=== PATIENT | female | born 1955 | race Caucasian/White ===

== ENCOUNTER 2021-10-05 07:27 | Inpatient (IN) | payer OTHER, MEDICARE ==
[2021-10-05 08:20] LABS: Bilirubin Neg (Negative); Blood, Urine 25 (Negative); Clarity Clear (Clear); Glucose, Urine (Dipstick) Normal (Negative); Ketone, Urine Negative (Negative); Leukocyte 100 (Negative); Nitrite Positive (Negative); Protein, Urine (Dipstick) 30 mg/dl (Neg-Trace); Urobilinogen Normal mg/dL (Less than 2)
[2021-10-05 09:08] LABS: Squamous Epithelial 0-3 HPF (0-3)
[2021-10-05 09:09] LABS: Bacteria/HPF 2+ HPF (None Seen)
[2021-10-05] MEDS ORDERED: Cefepime 2 GM VIAL ONE (09:11)
[2021-10-05 09:22] LABS: #Monocytes 1.4 10x3/uL (0.0-1.1); #Neutrophils 10.7 10x3/uL (1.5-8.4); %Basophils 0.3 % (0.0-2.0); %Eosinophils 0.3 % (0.0-6.0); %Lymphocytes 14.2 % (18.0-47.0); %Monocytes 9.4 % (0.0-10.0); Hemoglobin 8.5 g/dL (12.0-15.5); Mean Corpuscular HGB CONC 31.3 g/dL (32.0-36.0); Mean Corpuscular Volume 96.1 fl (81.6-98.3); Mean Platelet Volume 10.5 fl (7.4-10.4); Platelet Count 272 10x3/uL (150-450); RBC Distribution Width 14.6 % (11.5-14.5); Red Blood Cell (RBC) Count 2.83 10x6/uL (3.90-5.03); White Blood Cell (WBC) Count 14.3 10x3/uL (3.5-10.5)
[2021-10-05 09:27] LABS: Acetaminophen Less than 10.0 mcg/mL (10.0-30.0); Alcohol Less than 10 mg/dL (Less than 10); CK (CPK) 1175 U/L (29-168); Salicylate Less than 8.0 mg/dL (15.0-30.0)
[2021-10-05 09:28] LABS: ALT (SGPT) 24 U/L (8-55); AST (SGOT) 35 U/L (5-34); Albumin 4.1 g/dL (3.4-4.8); Alkaline Phosphatase 48 U/L (40-110); Anion Gap 18 mmol/L (10-20); BUN (Urea Nitrogen) 18 mg/dL (9.8-20.1); Bilirubin, Total 0.4 mg/dL (0.2-1.2); Calc. Creatinine Clearance 0 mL/min (70-130); Calcium 9.6 mg/dL (7.8-10.44); Carbon Dioxide 17 mmol/L (23-31); Chloride 107 mmol/L (98-107); Globulin 3.5 g/dL (2.4-3.5); Glucose 103 mg/dL (80-115); Lipase 17 U/L (8-78); Potassium 4.6 mmol/L (3.5-5.1); Protein, Total 7.6 g/dL (5.8-8.1); Sodium 137 mmol/L (136-145)
[2021-10-05 09:40] LABS: Amphetamine Not Detected (NotDetected); Barbiturates Screen Detected (NotDetected); Benzodiazepine Screen Not Detected (NotDetected); Cocaine Metabolite Screen Not Detected (NotDetected); Methadone Not Detected (NotDetected); Methamphetamine Not Detected (NotDetected); Opiate Screen Not Detected (NotDetected); Oxycodone Screen Not Detected (NotDetected); Phencyclidine (PCP) Not Detected (NotDetected); THC/Cannabinoid Screen Not Detected (NotDetected); Tricyclic Screen Detected (NotDetected)
[2021-10-05] MEDS ORDERED: Ondansetron ODT 4 MG TAB PO PRN (09:40)
[2021-10-05] MEDS ORDERED: Bisacodyl 5 MG TAB PO PRN (09:40)
[2021-10-05] MEDS ORDERED: Ondansetron PF 4 MG/2 ML Vial IVP PRN (09:40)
[2021-10-05] MEDS ORDERED: Senokot S 8.6-50 MG TAB PO PRN (09:40)
[2021-10-05 11:49] LABS: Iron 18 ug/dL (50-170); Iron Binding Capacity, Total 391 mcg/dL (265-497)
[2021-10-05] MEDS ORDERED: VANCOMYCIN 1.75 GM/350 ML BAG 1.75 GM in Premix Bag 1 BAG IVPB SCH (12:00)
[2021-10-05 12:09] LABS: Ferritin 118.25 ng/mL (10-291)
[2021-10-05 14:45] VITALS: BMI 36.6
[2021-10-05] MEDS: Sodium Chloride 0.9% 1,000 ML IV SCH ×2 (15:03→23:00)
[2021-10-05] MEDS: Acetaminophen 325 MG TAB PO PRN ×2 (16:48→21:16)
[2021-10-05] MEDS: Ferrous Sulfate 325 MG TAB PO SCH (16:48)
[2021-10-05] MEDS: cefTRIAXone\\ROCEPHIN 1 GM in Sodium Chloride 0.9% 100 ML IVPB SCH (16:48)
[2021-10-05] MEDS ORDERED: Gabapentin 300 MG CAP PO SCH (17:15)
[2021-10-05] MEDS ORDERED: Cefepime 2 GM in Sodium Chloride 0.9% 100 ML IVPB SCH (21:00)
[2021-10-05] MEDS: Bupropion 150 MG XL TAB PO SCH (21:00)
[2021-10-05] MEDS: DULoxetine 30 MG CAP PO SCH (21:00)
[2021-10-05] MEDS ORDERED: Meclizine HCl 25 MG TAB PO SCH (21:00)
[2021-10-05] MEDS ORDERED: Vancomycin 1 GM in Premix Bag 1 BAG IVPB SCH (21:00)
[2021-10-05] MEDS: Potassium Chloride 20 MEQ TAB PO SCH (21:01)
[2021-10-05] MEDS: Atorvastatin Calcium 20 MG TAB PO SCH (21:01)
[2021-10-06] MEDS: Acetaminophen 325 MG TAB PO PRN (01:44)
[2021-10-06 04:43] LABS: ALT (SGPT) 30 U/L (8-55); AST (SGOT) 44 U/L (5-34); Albumin 3.6 g/dL (3.4-4.8); Alkaline Phosphatase 49 U/L (40-110); Anion Gap 15 mmol/L (10-20); BUN (Urea Nitrogen) 14 mg/dL (9.8-20.1); Bilirubin, Total 0.2 mg/dL (0.2-1.2); Calc. Creatinine Clearance 85 mL/min (70-130); Calcium 8.6 mg/dL (7.8-10.44); Carbon Dioxide 17 mmol/L (23-31); Chloride 114 mmol/L (98-107); Globulin 3.5 g/dL (2.4-3.5); Glucose 122 mg/dL (80-115); Potassium 4.3 mmol/L (3.5-5.1); Protein, Total 7.1 g/dL (5.8-8.1); Sodium 142 mmol/L (136-145)
[2021-10-06 04:49] LABS: #Eosinphils 0.3 10x3/uL (0.0-0.5); #Neutrophils 5.6 10x3/uL (1.5-8.4); %Basophils 0.4 % (0.0-2.0); %Eosinophils 3.7 % (0.0-6.0); %Lymphocytes 17.4 % (18.0-47.0); %Monocytes 11.9 % (0.0-10.0); %Neutrophils 65.8 % (40.0-75.0); Hemoglobin 8.5 g/dL (12.0-15.5); Mean Corpuscular HGB CONC 31.1 g/dL (32.0-36.0); Mean Corpuscular Hemoglobin 30.5 pg (27.0-33.0); Mean Corpuscular Volume 97.8 fl (81.6-98.3); Mean Platelet Volume 10.7 fl (7.4-10.4); Platelet Count 264 10x3/uL (150-450); RBC Distribution Width 14.7 % (11.5-14.5); Red Blood Cell (RBC) Count 2.79 10x6/uL (3.90-5.03); White Blood Cell (WBC) Count 8.6 10x3/uL (3.5-10.5)
[2021-10-06 06:36] LABS: SARS-CoV-2 NAA Rapid Test Not Detected (NotDetected)
[2021-10-06] MEDS: Sodium Chloride 0.9% 1,000 ML IV SCH ×2 (08:54→16:48)
[2021-10-06] MEDS: Atenolol 25 MG TAB PO SCH (08:56)
[2021-10-06] MEDS: DULoxetine 30 MG CAP PO SCH ×2 (08:56→21:12)
[2021-10-06] MEDS: Losartan Potassium 50 MG TAB PO SCH (08:56)
[2021-10-06] MEDS: Amlodipine 10 MG TAB PO SCH (08:57)
[2021-10-06] MEDS: Ferrous Sulfate 325 MG TAB PO SCH ×2 (08:57→16:48)
[2021-10-06] MEDS: Bupropion 150 MG XL TAB PO SCH ×2 (08:57→21:11)
[2021-10-06] MEDS: Potassium Chloride 20 MEQ TAB PO SCH ×2 (08:57→21:12)
[2021-10-06] MEDS: Escitalopram Oxalate 20 mg Tablet PO SCH (08:57)
[2021-10-06] MEDS: Fenofibrate Nanocrystallized 145 MG TAB PO SCH (08:58)
[2021-10-06] MEDS ORDERED: Non-Formulary Medication 1 EACH (Famotidine [Famotidine] 40 MG Tablet) PO SCH (09:00)
[2021-10-06] MEDS ORDERED: Famotidine 20 MG TAB PO SCH (09:00)
[2021-10-06] MEDS: HYDROcodone/Acetaminophen 5/325 mg Tablet PO PRN ×2 (11:17→21:13)
[2021-10-06] MEDS ORDERED: Vancomycin 1.5 GRAM/300 ML BAG 1.5 GM in Premix Bag 1 BAG IVPB SCH (12:00)
[2021-10-06] MEDS: cefTRIAXone\\ROCEPHIN 1 GM in Sodium Chloride 0.9% 100 ML IVPB SCH (16:48)
[2021-10-06] MEDS: Atorvastatin Calcium 20 MG TAB PO SCH (21:11)
[2021-10-06] MEDS: Famotidine 20 MG TAB PO SCH (21:12)
[2021-10-07] MEDS: HYDROcodone/Acetaminophen 5/325 mg Tablet PO PRN ×3 (01:23→16:34)
[2021-10-07] MEDS: Sodium Chloride 0.9% 1,000 ML IV SCH ×2 (05:09→16:42)
[2021-10-07 05:18] LABS: #Eosinphils 0.4 10x3/uL (0.0-0.5); #Neutrophils 6.5 10x3/uL (1.5-8.4); %Basophils 0.4 % (0.0-2.0); %Eosinophils 4.5 % (0.0-6.0); %Lymphocytes 17.7 % (18.0-47.0); %Monocytes 10.3 % (0.0-10.0); %Neutrophils 66.5 % (40.0-75.0); Hemoglobin 8.8 g/dL (12.0-15.5); Mean Corpuscular HGB CONC 31.4 g/dL (32.0-36.0); Mean Corpuscular Hemoglobin 30.2 pg (27.0-33.0); Mean Corpuscular Volume 96.2 fl (81.6-98.3); Mean Platelet Volume 10.4 fl (7.4-10.4); Platelet Count 308 10x3/uL (150-450); RBC Distribution Width 14.5 % (11.5-14.5); Red Blood Cell (RBC) Count 2.91 10x6/uL (3.90-5.03); White Blood Cell (WBC) Count 9.8 10x3/uL (3.5-10.5)
[2021-10-07 05:38] LABS: Anion Gap 15 mmol/L (10-20); BUN (Urea Nitrogen) 11 mg/dL (9.8-20.1); Calc. Creatinine Clearance 100 mL/min (70-130); Calcium 8.6 mg/dL (7.8-10.44); Carbon Dioxide 20 mmol/L (23-31); Chloride 107 mmol/L (98-107); Glucose 102 mg/dL (80-115); Sodium 138 mmol/L (136-145)
[2021-10-07] MEDS: Amlodipine 10 MG TAB PO SCH (08:31)
[2021-10-07] MEDS: Losartan Potassium 50 MG TAB PO SCH (08:32)
[2021-10-07] MEDS: Potassium Chloride 20 MEQ TAB PO SCH ×2 (08:32→21:05)
[2021-10-07] MEDS: Ferrous Sulfate 325 MG TAB PO SCH ×2 (08:32→16:45)
[2021-10-07] MEDS: DULoxetine 30 MG CAP PO SCH ×2 (08:32→21:05)
[2021-10-07] MEDS: Escitalopram Oxalate 20 mg Tablet PO SCH (08:32)
[2021-10-07] MEDS: Bupropion 150 MG XL TAB PO SCH ×2 (08:33→21:04)
[2021-10-07] MEDS: Atenolol 25 MG TAB PO SCH (08:33)
[2021-10-07] MEDS: Famotidine 20 MG TAB PO SCH ×2 (08:34→21:04)
[2021-10-07] MEDS: Fenofibrate Nanocrystallized 145 MG TAB PO SCH (08:35)
[2021-10-07 11:14] LABS: Vancomycin, Trough 6.8 ug/mL
[2021-10-07] MEDS: Vancomycin HCl 1 GM in Sodium Chloride 0.9% 250 ML 250 ML IVPB SCH (12:14)
[2021-10-07] MEDS: cefTRIAXone\\ROCEPHIN 1 GM in Sodium Chloride 0.9% 100 ML IVPB SCH (16:35)
[2021-10-07] MEDS: Atorvastatin Calcium 20 MG TAB PO SCH (21:04)
[2021-10-08] MEDS: Vancomycin HCl 1 GM in Sodium Chloride 0.9% 250 ML 250 ML IVPB SCH ×2 (00:27→11:40)
[2021-10-08] MEDS: Sodium Chloride 0.9% 1,000 ML IV SCH ×3 (00:31→21:20)
[2021-10-08] MEDS: Ferrous Sulfate 325 MG TAB PO SCH ×2 (08:20→16:23)
[2021-10-08] MEDS: Famotidine 20 MG TAB PO SCH ×2 (08:21→21:21)
[2021-10-08] MEDS: HYDROcodone/Acetaminophen 5/325 mg Tablet PO PRN ×2 (08:21→16:23)
[2021-10-08] MEDS: Bupropion 150 MG XL TAB PO SCH ×2 (08:22→21:21)
[2021-10-08] MEDS: Potassium Chloride 20 MEQ TAB PO SCH ×2 (08:22→21:21)
[2021-10-08] MEDS: Atenolol 25 MG TAB PO SCH (08:22)
[2021-10-08] MEDS: Losartan Potassium 50 MG TAB PO SCH (08:23)
[2021-10-08] MEDS: Amlodipine 10 MG TAB PO SCH (08:23)
[2021-10-08] MEDS: Escitalopram Oxalate 20 mg Tablet PO SCH (08:24)
[2021-10-08] MEDS: DULoxetine 30 MG CAP PO SCH ×2 (08:24→21:21)
[2021-10-08] MEDS: Fenofibrate Nanocrystallized 145 MG TAB PO SCH (09:40)
[2021-10-08] MEDS: cefTRIAXone\\ROCEPHIN 1 GM in Sodium Chloride 0.9% 100 ML IVPB SCH (16:23)
[2021-10-08] MEDS: Atorvastatin Calcium 20 MG TAB PO SCH (21:21)
[2021-10-08 23:00] LABS: Vancomycin, Trough 13.5 ug/mL
[2021-10-09] MEDS ORDERED: hydrALAZINE 20 MG/ML VIAL SLOW IVP PRN (00:08)
[2021-10-09] MEDS: Vancomycin HCl 1 GM in Sodium Chloride 0.9% 250 ML 250 ML IVPB SCH ×3 (04:04→22:51)
[2021-10-09] MEDS: Sodium Chloride 0.9% 1,000 ML IV SCH (06:31)
[2021-10-09] MEDS: Atenolol 25 MG TAB PO SCH (09:00)
[2021-10-09] MEDS: Fenofibrate Nanocrystallized 145 MG TAB PO SCH (09:01)
[2021-10-09] MEDS: Amlodipine 10 MG TAB PO SCH (09:01)
[2021-10-09] MEDS: Escitalopram Oxalate 20 mg Tablet PO SCH (09:01)
[2021-10-09] MEDS: Bupropion 150 MG XL TAB PO SCH ×2 (09:01→21:02)
[2021-10-09] MEDS: DULoxetine 30 MG CAP PO SCH ×2 (09:01→21:04)
[2021-10-09] MEDS: Potassium Chloride 20 MEQ TAB PO SCH ×2 (09:01→21:03)
[2021-10-09] MEDS: Losartan Potassium 50 MG TAB PO SCH (09:01)
[2021-10-09] MEDS: Famotidine 20 MG TAB PO SCH ×2 (09:01→21:03)
[2021-10-09] MEDS: Ferrous Sulfate 325 MG TAB PO SCH ×2 (09:01→17:38)
[2021-10-09] MEDS ORDERED: Metoprolol Tartrate 5 MG/5 ML VIAL IVP PRN (13:30)
[2021-10-09] MEDS ORDERED: Cyclobenzaprine 10 MG TAB PO PRN (15:25)
[2021-10-09] MEDS ORDERED: Lidocaine 1% PF 5 ML VIAL ONE (15:57)
[2021-10-09] MEDS ORDERED: PROPOFOL 20 ML ONE (15:57)
[2021-10-09] MEDS ORDERED: Ondansetron PF 4 MG/2 ML Vial ONE (15:57)
[2021-10-09] MEDS ORDERED: Dexamethasone 4 mg/ml Vial ONE (15:57)
[2021-10-09] MEDS ORDERED: Fentanyl 100 MCG/2 ML VIAL ONE ×2 (15:57→16:56)
[2021-10-09] MEDS: cefTRIAXone\\ROCEPHIN 1 GM in Sodium Chloride 0.9% 100 ML IVPB SCH (17:38)
[2021-10-09] MEDS: HYDROcodone/Acetaminophen 5/325 mg Tablet PO PRN (20:58)
[2021-10-09] MEDS: Primidone 50 MG TAB PO SCH (21:02)
[2021-10-09] MEDS: Atorvastatin Calcium 20 MG TAB PO SCH (21:04)
[2021-10-10] MEDS: HYDROcodone/Acetaminophen 5/325 mg Tablet PO PRN ×3 (02:32→16:38)
[2021-10-10 05:07] LABS: #Basophils 0.1 10x3/uL (0.0-0.2); #Eosinphils 0.1 10x3/uL (0.0-0.5); #Monocytes 1.3 10x3/uL (0.0-1.1); %Basophils 0.4 % (0.0-2.0); %Eosinophils 0.6 % (0.0-6.0); %Lymphocytes 13.3 % (18.0-47.0); %Monocytes 9.9 % (0.0-10.0); %Neutrophils 74.5 % (40.0-75.0); Anion Gap 18 mmol/L (10-20); BUN (Urea Nitrogen) 20 mg/dL (9.8-20.1); Calc. Creatinine Clearance 74 mL/min (70-130); Calcium 9.6 mg/dL (7.8-10.44); Carbon Dioxide 23 mmol/L (23-31); Chloride 106 mmol/L (98-107); Glucose 102 mg/dL (80-115); Hemoglobin 9.3 g/dL (12.0-15.5); Mean Corpuscular Hemoglobin 29.8 pg (27.0-33.0); Mean Corpuscular Volume 93.3 fl (81.6-98.3); Mean Platelet Volume 9.9 fl (7.4-10.4); Platelet Count 483 10x3/uL (150-450); Potassium 4.4 mmol/L (3.5-5.1); RBC Distribution Width 14.5 % (11.5-14.5); Red Blood Cell (RBC) Count 3.12 10x6/uL (3.90-5.03); Sodium 143 mmol/L (136-145); White Blood Cell (WBC) Count 13.4 10x3/uL (3.5-10.5)
[2021-10-10] MEDS: Escitalopram Oxalate 20 mg Tablet PO SCH (08:49)
[2021-10-10] MEDS: Primidone 50 MG TAB PO SCH ×2 (08:49→20:10)
[2021-10-10] MEDS: DULoxetine 30 MG CAP PO SCH ×2 (08:49→20:09)
[2021-10-10] MEDS: Ferrous Sulfate 325 MG TAB PO SCH ×2 (08:49→16:41)
[2021-10-10] MEDS: Fenofibrate Nanocrystallized 145 MG TAB PO SCH (08:49)
[2021-10-10] MEDS: Methocarbamol 500 MG TAB PO SCH (08:49)
[2021-10-10] MEDS: Famotidine 20 MG TAB PO SCH ×2 (08:49→20:10)
[2021-10-10] MEDS: Atenolol 25 MG TAB PO SCH ×2 (08:49→20:09)
[2021-10-10] MEDS: Potassium Chloride 20 MEQ TAB PO SCH ×2 (08:50→20:10)
[2021-10-10] MEDS: Bupropion 150 MG XL TAB PO SCH ×2 (08:50→20:10)
[2021-10-10] MEDS: Amlodipine 10 MG TAB PO SCH (08:50)
[2021-10-10] MEDS: Losartan Potassium 50 MG TAB PO SCH (08:50)
[2021-10-10] MEDS: hydrALAZINE 20 MG/ML VIAL SLOW IVP PRN (09:16)
[2021-10-10 10:55] LABS: Vancomycin, Trough 19.2 ug/mL
[2021-10-10] MEDS: Vancomycin HCl 1 GM in Sodium Chloride 0.9% 250 ML 250 ML IVPB SCH (12:16)
[2021-10-10] MEDS: Acetaminophen 325 MG TAB PO PRN (14:51)
[2021-10-10] MEDS: Atorvastatin Calcium 20 MG TAB PO SCH (20:10)
[2021-10-11] MEDS: Vancomycin HCl 750 MG in Sodium Chloride 0.9% 250 ML 250 ML IVPB SCH ×2 (00:58→11:55)
[2021-10-11] MEDS: hydrALAZINE 20 MG/ML VIAL SLOW IVP PRN (00:59)
[2021-10-11] MEDS: HYDROcodone/Acetaminophen 5/325 mg Tablet PO PRN ×3 (01:44→14:41)
[2021-10-11] MEDS: Famotidine 20 MG TAB PO SCH (10:40)
[2021-10-11] MEDS: Losartan Potassium 50 MG TAB PO SCH (10:40)
[2021-10-11] MEDS: Primidone 50 MG TAB PO SCH (10:41)
[2021-10-11] MEDS: Bupropion 150 MG XL TAB PO SCH (10:42)
[2021-10-11] MEDS: Ferrous Sulfate 325 MG TAB PO SCH ×2 (10:42→18:09)
[2021-10-11] MEDS: DULoxetine 30 MG CAP PO SCH (10:43)
[2021-10-11] MEDS: Potassium Chloride 20 MEQ TAB PO SCH (10:43)
[2021-10-11] MEDS: Escitalopram Oxalate 20 mg Tablet PO SCH (10:43)
[2021-10-11] MEDS: Methocarbamol 500 MG TAB PO SCH (10:43)
[2021-10-11] MEDS: Fenofibrate Nanocrystallized 145 MG TAB PO SCH (10:44)
[2021-10-11] MEDS: Atenolol 25 MG TAB PO SCH (10:45)
[2021-10-11] MEDS: Amlodipine 10 MG TAB PO SCH (10:45)
[2021-10-11] MEDS: Acetaminophen 325 MG TAB PO PRN (18:08)
[2021-10-11 22:22] VITALS: BP 119/84; TEMP 97.2
== END 2021-10-11 20:10 | disposition home or self-care (01) | DRG 579 ==
LOC: CSHERS 07:27 → CSHERHOLD 10:16 → CSHTELE 14:06
PROVIDERS: ADMIT Hospitalist; ATTEND Internal Medicine
PROC: 0JBJ0ZZ Excision of Right Hand Subcutaneous Tissue and Fascia, Open Approach (ICD-10-PCS; principal; 2021-10-09)
DX: L03.113 Cellulitis of right upper limb (principal); G93.41 Metabolic encephalopathy; N30.00 Acute cystitis without hematuria; N17.9 Acute kidney failure, unspecified; M62.82 Rhabdomyolysis; E78.5 Hyperlipidemia, unspecified; F32.A Depression, unspecified; G89.29 Other chronic pain; Z20.822 Contact with and (suspected) exposure to COVID-19; D72.829 Elevated white blood cell count, unspecified; I16.0 Hypertensive urgency; D64.9 Anemia, unspecified; W19.XXXA Unspecified fall, initial encounter; Y92.59 Other trade areas as the place of occurrence of the external cause; Z98.890 Other specified postprocedural states; Z87.891 Personal history of nicotine dependence
CPT/HCPCS: 36415; 70450; 71045; 80048; 80053; 80202; 80306; 80307; 81003; 81015; 82550; 82607; 82728; 82746; 83540; 83550; 83605; 83690; 84145; 84484; 85025; 85652; 86141; 87040; 87070; 87077; 87086; 87186; 87205; 93005; 94760; 96361; 96365; 96366; 96367; J0360; J0692; J0696; J1100; J1956; J2405; J2704; J3010; J3370; J3490; J7050; U0002

== ENCOUNTER 2021-11-16 18:02 | Inpatient (IN) | payer MEDICARE, OTHER ==
[2021-11-16 19:05] LABS: #Eosinphils 0.2 10x3/uL (0.0-0.5); #Monocytes 0.9 10x3/uL (0.0-1.1); #Neutrophils 5.7 10x3/uL (1.5-8.4); %Basophils 0.5 % (0.0-2.0); %Eosinophils 2.7 % (0.0-6.0); %Lymphocytes 20.4 % (18.0-47.0); %Monocytes 9.9 % (0.0-10.0); %Neutrophils 66.3 % (40.0-75.0); Hemoglobin 10.2 g/dL (12.0-15.5); Mean Corpuscular HGB CONC 32.3 g/dL (32.0-36.0); Mean Corpuscular Hemoglobin 30.4 pg (27.0-33.0); Mean Platelet Volume 9.5 fl (7.4-10.4); Platelet Count 337 10x3/uL (150-450); RBC Distribution Width 14.6 % (11.5-14.5); Red Blood Cell (RBC) Count 3.36 10x6/uL (3.90-5.03); White Blood Cell (WBC) Count 8.6 10x3/uL (3.5-10.5)
[2021-11-16 19:20] LABS: ALT (SGPT) 28 U/L (8-55); AST (SGOT) 31 U/L (5-34); Acetaminophen Less than 10.0 mcg/mL (10.0-30.0); Albumin 4.1 g/dL (3.4-4.8); Alcohol Less than 10 mg/dL (Less than 10); Alkaline Phosphatase 55 U/L (40-110); Anion Gap 16 mmol/L (10-20); BUN (Urea Nitrogen) 17 mg/dL (9.8-20.1); Bilirubin, Total 0.4 mg/dL (0.2-1.2); CK (CPK) 177 U/L (29-168); Calc. Creatinine Clearance 0 mL/min (70-130); Calcium 9.4 mg/dL (7.8-10.44); Carbon Dioxide 23 mmol/L (23-31); Chloride 108 mmol/L (98-107); Estimated GFR 30; Globulin 3.1 g/dL (2.4-3.5); Glucose 80 mg/dL (80-115); Potassium 4.2 mmol/L (3.5-5.1); Protein, Total 7.2 g/dL (5.8-8.1); Salicylate Less than 8.0 mg/dL (15.0-30.0); Sodium 143 mmol/L (136-145)
[2021-11-16 19:22] LABS: INR-International Normal Ratio 1.2; PTT 24.9 sec (22.0-33.0); Prothrombin Time 12.6 sec (9.5-12.1)
[2021-11-16] MEDS ORDERED: Ondansetron PF 4 MG/2 ML Vial IVP PRN (22:17)
[2021-11-16] MEDS ORDERED: Senokot S 8.6-50 MG TAB PO PRN (22:17)
[2021-11-16] MEDS ORDERED: Zolpidem Tartrate 5 MG TAB PO PRN (22:17)
[2021-11-16] MEDS ORDERED: Guaifenesin DM 100-10/5 ML UDCUP PO PRN (22:17)
[2021-11-16] MEDS ORDERED: Calcium Carbonate 500 MG ChewTAB PO PRN (22:17)
[2021-11-17 00:08] LABS: SARS-CoV-2 NAA Rapid Test Not Detected (NotDetected)
[2021-11-17 01:49] VITALS: BMI 29.5
[2021-11-17 01:55] LABS: Bilirubin 1+ (Negative); Blood, Urine Negative (Negative); Clarity Slightly Cloudy (Clear); Glucose, Urine (Dipstick) Normal (Negative); Ketone, Urine 5 mg/dL (Negative); Leukocyte 25 (Negative); Nitrite Negative (Negative); Protein, Urine (Dipstick) 15 mg/dl (Neg-Trace); Urobilinogen Normal mg/dL (Less than 2)
[2021-11-17] MEDS ORDERED: Amlodipine 5 MG TAB PO SCH (02:00)
[2021-11-17] MEDS: Lactated Ringer's 1,000 ML IV SCH ×3 (02:01→21:26)
[2021-11-17 02:03] LABS: Bacteria/HPF None Seen HPF (None Seen); Mucous/LPF 2+ LPF (<2+); RBC/HPF None Seen HPF (0-3); Squamous Epithelial 0-3 HPF (0-3); WBC/HPF 0-3 HPF (0-3)
[2021-11-17 02:04] LABS: Amphetamine Not Detected (NotDetected); Barbiturates Screen Detected (NotDetected); Benzodiazepine Screen Detected (NotDetected); Cocaine Metabolite Screen Not Detected (NotDetected); Methadone Not Detected (NotDetected); Methamphetamine Not Detected (NotDetected); Opiate Screen Not Detected (NotDetected); Oxycodone Screen Not Detected (NotDetected); Phencyclidine (PCP) Not Detected (NotDetected); THC/Cannabinoid Screen Not Detected (NotDetected); Tricyclic Screen Detected (NotDetected)
[2021-11-17 04:57] LABS: #Eosinphils 0.2 10x3/uL (0.0-0.5); #Monocytes 0.6 10x3/uL (0.0-1.1); #Neutrophils 3.3 10x3/uL (1.5-8.4); %Basophils 0.5 % (0.0-2.0); %Eosinophils 3.5 % (0.0-6.0); %Lymphocytes 33.7 % (18.0-47.0); %Monocytes 9.8 % (0.0-10.0); %Neutrophils 52.2 % (40.0-75.0); Hemoglobin 9.3 g/dL (12.0-15.5); Mean Corpuscular HGB CONC 32.4 g/dL (32.0-36.0); Mean Corpuscular Hemoglobin 30.5 pg (27.0-33.0); Mean Corpuscular Volume 94.1 fl (81.6-98.3); Platelet Count 267 10x3/uL (150-450); RBC Distribution Width 14.8 % (11.5-14.5); Red Blood Cell (RBC) Count 3.05 10x6/uL (3.90-5.03); White Blood Cell (WBC) Count 6.4 10x3/uL (3.5-10.5)
[2021-11-17 05:18] LABS: Anion Gap 16 mmol/L (10-20); BUN (Urea Nitrogen) 17 mg/dL (9.8-20.1); CK (CPK) 196 U/L (29-168); Calc. Creatinine Clearance 44 mL/min (70-130); Calcium 8.7 mg/dL (7.8-10.44); Carbon Dioxide 21 mmol/L (23-31); Chloride 110 mmol/L (98-107); Estimated GFR 42; Glucose 87 mg/dL (80-115); Magnesium 1.5 mg/dL (1.6-2.6); Potassium 3.4 mmol/L (3.5-5.1); Sodium 144 mmol/L (136-145)
[2021-11-17] MEDS ORDERED: Potassium Chloride 20 MEQ TAB PO SCH (06:15)
[2021-11-17] MEDS ORDERED: Magnesium 2 GM/50 ML(in water) 2 GM in Premix Bag 1 BAG IVPB SCH (06:15)
[2021-11-17] MEDS ORDERED: Atenolol 25 MG TAB PO SCH (09:00)
[2021-11-17] MEDS: Atenolol 25 MG TAB PO SCH (09:39)
[2021-11-17] MEDS: Famotidine 20 MG TAB PO SCH (09:39)
[2021-11-17] MEDS: Aspirin 81 mg Enteric Coated Tablet PO SCH (09:39)
[2021-11-17] MEDS: Amlodipine 10 MG TAB PO SCH (09:40)
[2021-11-17] MEDS: Ferrous Sulfate 325 MG TAB PO SCH ×2 (09:40→17:44)
[2021-11-17] MEDS: Enoxaparin Sodium 40 MG/0.4 ML SYRINGE SC SCH (09:40)
[2021-11-17] MEDS: Stress 600 With Zinc 1 TAB PO SCH (09:44)
[2021-11-17 13:32] LABS: Anion Gap 12 mmol/L (10-20); BUN (Urea Nitrogen) 13 mg/dL (9.8-20.1); Calc. Creatinine Clearance 58 mL/min (70-130); Calcium 8.6 mg/dL (7.8-10.44); Carbon Dioxide 25 mmol/L (23-31); Chloride 108 mmol/L (98-107); Estimated GFR 58; Glucose 132 mg/dL (80-115); Magnesium 1.8 mg/dL (1.6-2.6); Potassium 3.7 mmol/L (3.5-5.1); Sodium 141 mmol/L (136-145)
[2021-11-17] MEDS: Atorvastatin Calcium 20 MG TAB PO SCH (21:25)
[2021-11-18] MEDS: Ferrous Sulfate 325 MG TAB PO SCH ×2 (09:00→18:06)
[2021-11-18] MEDS: Atenolol 25 MG TAB PO SCH (09:01)
[2021-11-18] MEDS: Aspirin 81 mg Enteric Coated Tablet PO SCH (09:01)
[2021-11-18] MEDS: Famotidine 20 MG TAB PO SCH (09:02)
[2021-11-18] MEDS: Amlodipine 10 MG TAB PO SCH (09:02)
[2021-11-18] MEDS: Enoxaparin Sodium 40 MG/0.4 ML SYRINGE SC SCH (09:02)
[2021-11-18] MEDS: Stress 600 With Zinc 1 TAB PO SCH (18:09)
[2021-11-18] MEDS: hydrALAZINE 25 MG TAB PO SCH ×2 (18:09→20:15)
[2021-11-18] MEDS: Lactated Ringer's 1,000 ML IV SCH (18:10)
[2021-11-18] MEDS: Atorvastatin Calcium 20 MG TAB PO SCH (20:15)
[2021-11-19] MEDS: Acetaminophen 325 MG TAB PO PRN ×2 (04:28→20:50)
[2021-11-19] MEDS: Lactated Ringer's 1,000 ML IV SCH ×2 (04:31→18:40)
[2021-11-19] MEDS: Atenolol 25 MG TAB PO SCH (09:37)
[2021-11-19] MEDS: Enoxaparin Sodium 40 MG/0.4 ML SYRINGE SC SCH ×2 (09:37→09:42)
[2021-11-19] MEDS: Famotidine 20 MG TAB PO SCH (09:38)
[2021-11-19] MEDS: hydrALAZINE 25 MG TAB PO SCH ×3 (09:38→20:51)
[2021-11-19] MEDS: Ferrous Sulfate 325 MG TAB PO SCH ×2 (09:38→18:44)
[2021-11-19] MEDS: Amlodipine 10 MG TAB PO SCH (09:38)
[2021-11-19] MEDS: Aspirin 81 mg Enteric Coated Tablet PO SCH (09:38)
[2021-11-19] MEDS: Stress 600 With Zinc 1 TAB PO SCH (09:39)
[2021-11-19] MEDS: Atorvastatin Calcium 20 MG TAB PO SCH (20:51)
[2021-11-20] MEDS: Amlodipine 10 MG TAB PO SCH (08:21)
[2021-11-20] MEDS: Famotidine 20 MG TAB PO SCH (08:21)
[2021-11-20] MEDS: Aspirin 81 mg Enteric Coated Tablet PO SCH (08:21)
[2021-11-20] MEDS: Ferrous Sulfate 325 MG TAB PO SCH (08:21)
[2021-11-20] MEDS: Atenolol 25 MG TAB PO SCH (08:21)
[2021-11-20] MEDS: Enoxaparin Sodium 40 MG/0.4 ML SYRINGE SC SCH (08:21)
[2021-11-20] MEDS: hydrALAZINE 25 MG TAB PO SCH (08:21)
[2021-11-20] MEDS: Stress 600 With Zinc 1 TAB PO SCH (10:24)
[2021-11-20 11:42] VITALS: TEMP 97.5
[2021-11-20 14:17] VITALS: BP 136/74
== END 2021-11-20 15:30 | disposition home or self-care (01) | DRG 682 ==
LOC: CSHERS 18:02 → CSHTELE 22:05 → UNDOADMOB 11-17 01:40 → CSHTELE 11-17 01:40 → OBSVTOIN 11-17 15:45
PROVIDERS: ADMIT Student in an Organized Health Care Education/Training Program; ATTEND Internal Medicine
DX: N17.9 Acute kidney failure, unspecified (principal); G92.8 Other toxic encephalopathy; I10 Essential (primary) hypertension; F32.A Depression, unspecified; E78.5 Hyperlipidemia, unspecified; G89.29 Other chronic pain; I25.10 Atherosclerotic heart disease of native coronary artery without angina pectoris; D63.8 Anemia in other chronic diseases classified elsewhere; E87.6 Hypokalemia; Z20.822 Contact with and (suspected) exposure to COVID-19; Z88.2 Allergy status to sulfonamides; Z88.8 Allergy status to other drugs, medicaments and biological substances; Z79.899 Other long term (current) drug therapy; Z98.890 Other specified postprocedural states; Z98.61 Coronary angioplasty status
CPT/HCPCS: 36415; 70450; 71045; 80048; 80053; 80306; 80307; 81001; 82550; 83605; 83690; 83735; 84443; 84484; 85025; 85610; 85730; 93005; 96372; 96374; G0378; J1650; J3475; J7120; U0002

== ENCOUNTER 2021-11-28 21:10 | Emergency (ER) | payer MEDICARE, OTHER ==
[2021-11-28 21:48] LABS: #Basophils 0.1 10x3/uL (0.0-0.2); #Eosinphils 0.2 10x3/uL (0.0-0.5); #Monocytes 1.1 10x3/uL (0.0-1.1); #Neutrophils 5.5 10x3/uL (1.5-8.4); %Basophils 0.5 % (0.0-2.0); %Eosinophils 2.4 % (0.0-6.0); %Lymphocytes 27.3 % (18.0-47.0); %Monocytes 11.6 % (0.0-10.0); %Neutrophils 57.9 % (40.0-75.0); Mean Corpuscular HGB CONC 32.7 g/dL (32.0-36.0); Mean Corpuscular Hemoglobin 30.1 pg (27.0-33.0); Mean Corpuscular Volume 91.8 fl (81.6-98.3); Mean Platelet Volume 9.2 fl (7.4-10.4); Platelet Count 396 10x3/uL (150-450); RBC Distribution Width 14.7 % (11.5-14.5); Red Blood Cell (RBC) Count 3.66 10x6/uL (3.90-5.03); White Blood Cell (WBC) Count 9.6 10x3/uL (3.5-10.5)
[2021-11-28 22:09] LABS: ALT (SGPT) 63 U/L (8-55); AST (SGOT) 35 U/L (5-34); Alkaline Phosphatase 71 U/L (40-110); Anion Gap 16 mmol/L (10-20); BUN (Urea Nitrogen) 17 mg/dL (9.8-20.1); Bilirubin, Total 0.2 mg/dL (0.2-1.2); Calc. Creatinine Clearance 0 mL/min (70-130); Calcium 10.3 mg/dL (7.8-10.44); Carbon Dioxide 24 mmol/L (23-31); Chloride 108 mmol/L (98-107); Estimated GFR 38; Globulin 3.4 g/dL (2.4-3.5); Glucose 152 mg/dL (80-115); Protein, Total 7.4 g/dL (5.8-8.1); Sodium 145 mmol/L (136-145)
[2021-11-28 22:20] LABS: Potassium 2.9 mmol/L (3.5-5.1)
[2021-11-28] MEDS ORDERED: Potassium Chloride 20 MEQ TAB ONE (22:54)
[2021-11-28] MEDS ORDERED: Atenolol 50 MG TAB PO SCH (23:45)
[2021-11-29] MEDS ORDERED: hydrALAZINE 20 MG/ML VIAL ONE (00:53)
== END 2021-11-29 01:27 | disposition home or self-care (01) ==
LOC: CSHERS 21:10
DX: T67.5XXA Heat exhaustion, unspecified, initial encounter (principal); E87.6 Hypokalemia; I10 Essential (primary) hypertension; M19.90 Unspecified osteoarthritis, unspecified site; F17.210 Nicotine dependence, cigarettes, uncomplicated; Z79.899 Other long term (current) drug therapy
CPT/HCPCS: 71045; 80053; 82550; 84484; 85025; 93005; 96361; 96374; J0360

== ENCOUNTER 2021-11-29 22:53 | Observation (INO) | payer MEDICARE, OTHER ==
[2021-11-29 23:51] LABS: #Basophils 0.1 10x3/uL (0.0-0.2); #Eosinphils 0.3 10x3/uL (0.0-0.5); #Monocytes 0.8 10x3/uL (0.0-1.1); #Neutrophils 4.8 10x3/uL (1.5-8.4); %Basophils 0.7 % (0.0-2.0); %Eosinophils 3.2 % (0.0-6.0); %Lymphocytes 34.6 % (18.0-47.0); %Monocytes 8.9 % (0.0-10.0); %Neutrophils 52.3 % (40.0-75.0); Hemoglobin 10.9 g/dL (12.0-15.5); Mean Corpuscular HGB CONC 31.4 g/dL (32.0-36.0); Mean Corpuscular Hemoglobin 29.7 pg (27.0-33.0); Mean Corpuscular Volume 94.6 fl (81.6-98.3); Mean Platelet Volume 9.4 fl (7.4-10.4); Platelet Count 348 10x3/uL (150-450); RBC Distribution Width 15.2 % (11.5-14.5); Red Blood Cell (RBC) Count 3.67 10x6/uL (3.90-5.03); White Blood Cell (WBC) Count 9.2 10x3/uL (3.5-10.5)
[2021-11-30 00:14] LABS: ALT (SGPT) 51 U/L (8-55); AST (SGOT) 32 U/L (5-34); Albumin 4.3 g/dL (3.4-4.8); Alkaline Phosphatase 82 U/L (40-110); Anion Gap 19 mmol/L (10-20); BUN (Urea Nitrogen) 18 mg/dL (9.8-20.1); Bilirubin, Total 0.4 mg/dL (0.2-1.2); Calc. Creatinine Clearance 0 mL/min (70-130); Calcium 9.6 mg/dL (7.8-10.44); Carbon Dioxide 19 mmol/L (23-31); Chloride 110 mmol/L (98-107); Estimated GFR 32; Glucose 77 mg/dL (80-115); Potassium 4.5 mmol/L (3.5-5.1); Protein, Total 7.3 g/dL (5.8-8.1); Sodium 143 mmol/L (136-145)
[2021-11-30] MEDS ORDERED: Nitroglycerin 0.4 MG TAB 1 EACH ONE (01:00)
[2021-11-30] MEDS ORDERED: Aspirin Chewable 81 MG TAB ONE (01:01)
[2021-11-30] MEDS ORDERED: Guaifenesin DM 100-10/5 ML UDCUP PO PRN (01:08)
[2021-11-30] MEDS ORDERED: Senokot S 8.6-50 MG TAB PO PRN (01:08)
[2021-11-30] MEDS ORDERED: Ondansetron PF 4 MG/2 ML Vial IVP PRN (01:08)
[2021-11-30] MEDS ORDERED: Zolpidem Tartrate 5 MG TAB PO PRN (01:08)
[2021-11-30] MEDS ORDERED: Calcium Carbonate 500 MG ChewTAB PO PRN (01:08)
[2021-11-30] MEDS ORDERED: Nitroglycerin 0.4 MG TAB (25 Tab Bottle) SL PRN (01:10)
[2021-11-30 02:54] VITALS: BMI 28.7
[2021-11-30 04:53] LABS: Anion Gap 17 mmol/L (10-20); BUN (Urea Nitrogen) 20 mg/dL (9.8-20.1); Calc. Creatinine Clearance 38 mL/min (70-130); Calcium 9.1 mg/dL (7.8-10.44); Carbon Dioxide 20 mmol/L (23-31); Chloride 110 mmol/L (98-107); Estimated GFR 34; Glucose 125 mg/dL (80-115); Potassium 3.6 mmol/L (3.5-5.1); Sodium 143 mmol/L (136-145)
[2021-11-30 05:17] LABS: SARS-CoV-2 NAA Rapid Test Not Detected (NotDetected)
[2021-11-30] MEDS: Bupropion 150 MG XL TAB PO SCH ×2 (08:54→21:22)
[2021-11-30] MEDS: Amlodipine 10 MG TAB PO SCH (08:54)
[2021-11-30] MEDS: Escitalopram Oxalate 20 mg Tablet PO SCH (08:54)
[2021-11-30] MEDS: ALPRAZolam 0.25 MG TAB PO SCH ×2 (08:55→21:22)
[2021-11-30] MEDS: Stress 600 With Zinc 1 TAB PO SCH (08:55)
[2021-11-30] MEDS: Famotidine 20 MG TAB PO SCH (08:55)
[2021-11-30] MEDS: DULoxetine 30 MG CAP PO SCH ×2 (08:55→21:21)
[2021-11-30] MEDS: Aspirin 81 mg Enteric Coated Tablet PO SCH (08:55)
[2021-11-30] MEDS: Losartan Potassium 50 MG TAB PO SCH (08:55)
[2021-11-30] MEDS: Enoxaparin Sodium 40 MG/0.4 ML SYRINGE SC SCH (08:56)
[2021-11-30] MEDS ORDERED: Primidone 250 MG TAB PO SCH (09:00)
[2021-11-30] MEDS ORDERED: Cyanocobalamin (Vitamin B-12) 1,000 MCG TAB PO SCH (11:00)
[2021-11-30 11:32] LABS: Iron 39 ug/dL (50-170); Iron Binding Capacity, Total 306 mcg/dL (265-497)
[2021-11-30] MEDS: Atenolol 50 MG TAB PO SCH (11:39)
[2021-11-30] MEDS: Primidone 50 MG TAB PO SCH ×2 (11:41→21:24)
[2021-11-30] MEDS ORDERED: Primidone 50 MG TAB PO SCH (12:00)
[2021-11-30] MEDS: Iron, Sodium Ferric Gluconate 250 MG in Sodium Chloride 0.9% 250 ML 250 ML IVPB SCH (12:56)
[2021-11-30] MEDS: Atorvastatin Calcium 20 MG TAB PO SCH (21:21)
[2021-11-30] MEDS: Terazosin HCl 1 MG CAP PO SCH (21:22)
[2021-12-01] MEDS: Iron, Sodium Ferric Gluconate 250 MG in Sodium Chloride 0.9% 250 ML 250 ML IVPB SCH (01:02)
[2021-12-01 06:07] LABS: ALT (SGPT) 26 U/L (8-55); AST (SGOT) 15 U/L (5-34); Albumin 3.2 g/dL (3.4-4.8); Alkaline Phosphatase 59 U/L (40-110); Anion Gap 18 mmol/L (10-20); BUN (Urea Nitrogen) 20 mg/dL (9.8-20.1); Bilirubin, Total 0.1 mg/dL (0.2-1.2); Calc. Creatinine Clearance 75 mL/min (70-130); Calcium 8.5 mg/dL (7.8-10.44); Carbon Dioxide 16 mmol/L (23-31); Chloride 111 mmol/L (98-107); Estimated GFR 78; Globulin 2.7 g/dL (2.4-3.5); Glucose 130 mg/dL (80-115); Potassium 3.1 mmol/L (3.5-5.1); Protein, Total 5.9 g/dL (5.8-8.1); Sodium 142 mmol/L (136-145)
[2021-12-01] MEDS ORDERED: Potassium Chloride 20 MEQ TAB PO SCH (08:30)
[2021-12-01] MEDS: Primidone 50 MG TAB PO SCH ×2 (09:10→21:20)
[2021-12-01] MEDS: ALPRAZolam 0.25 MG TAB PO SCH ×2 (09:10→21:20)
[2021-12-01] MEDS: Aspirin 81 mg Enteric Coated Tablet PO SCH (09:10)
[2021-12-01] MEDS: Amlodipine 10 MG TAB PO SCH (09:10)
[2021-12-01] MEDS: Enoxaparin Sodium 40 MG/0.4 ML SYRINGE SC SCH (09:11)
[2021-12-01] MEDS: DULoxetine 30 MG CAP PO SCH ×2 (09:11→21:20)
[2021-12-01] MEDS: Escitalopram Oxalate 20 mg Tablet PO SCH (09:11)
[2021-12-01] MEDS: Bupropion 150 MG XL TAB PO SCH ×2 (09:11→21:21)
[2021-12-01] MEDS: Stress 600 With Zinc 1 TAB PO SCH (09:11)
[2021-12-01] MEDS: Famotidine 20 MG TAB PO SCH (09:11)
[2021-12-01] MEDS: Atenolol 50 MG TAB PO SCH (09:12)
[2021-12-01] MEDS: Losartan Potassium 50 MG TAB PO SCH (09:12)
[2021-12-01 12:30] LABS: Anion Gap 15 mmol/L (10-20); BUN (Urea Nitrogen) 17 mg/dL (9.8-20.1); Calc. Creatinine Clearance 81 mL/min (70-130); Calcium 8.5 mg/dL (7.8-10.44); Carbon Dioxide 20 mmol/L (23-31); Chloride 109 mmol/L (98-107); Estimated GFR 86; Glucose 107 mg/dL (80-115); Potassium 4.3 mmol/L (3.5-5.1); Sodium 140 mmol/L (136-145)
[2021-12-01] MEDS: Acetaminophen 325 MG TAB PO PRN (21:19)
[2021-12-01] MEDS: Terazosin HCl 1 MG CAP PO SCH (21:20)
[2021-12-01] MEDS: Atorvastatin Calcium 20 MG TAB PO SCH (21:20)
[2021-12-02] MEDS: Atenolol 50 MG TAB PO SCH (09:19)
[2021-12-02] MEDS: Primidone 50 MG TAB PO SCH ×2 (09:19→20:46)
[2021-12-02] MEDS: Enoxaparin Sodium 40 MG/0.4 ML SYRINGE SC SCH (09:20)
[2021-12-02] MEDS: Escitalopram Oxalate 20 mg Tablet PO SCH (09:20)
[2021-12-02] MEDS: Aspirin 81 mg Enteric Coated Tablet PO SCH (09:21)
[2021-12-02] MEDS: Famotidine 20 MG TAB PO SCH (09:21)
[2021-12-02] MEDS: Amlodipine 10 MG TAB PO SCH (09:21)
[2021-12-02] MEDS: DULoxetine 30 MG CAP PO SCH ×2 (09:21→20:47)
[2021-12-02] MEDS: Losartan Potassium 50 MG TAB PO SCH (09:22)
[2021-12-02] MEDS: Bupropion 150 MG XL TAB PO SCH ×2 (09:23→20:46)
[2021-12-02] MEDS: Stress 600 With Zinc 1 TAB PO SCH (09:23)
[2021-12-02] MEDS: ALPRAZolam 0.25 MG TAB PO SCH ×2 (09:23→20:46)
[2021-12-02] MEDS: Atorvastatin Calcium 20 MG TAB PO SCH (20:46)
[2021-12-02] MEDS: Acetaminophen 325 MG TAB PO PRN (20:47)
[2021-12-02] MEDS: Terazosin HCl 1 MG CAP PO SCH (20:47)
[2021-12-02] MEDS: Gabapentin 300 MG CAP PO PRN (21:22)
[2021-12-03] MEDS: Famotidine 20 MG TAB PO SCH (10:08)
[2021-12-03] MEDS: Bupropion 150 MG XL TAB PO SCH ×2 (10:08→20:21)
[2021-12-03] MEDS: Amlodipine 10 MG TAB PO SCH (10:08)
[2021-12-03] MEDS: Escitalopram Oxalate 20 mg Tablet PO SCH (10:08)
[2021-12-03] MEDS: Stress 600 With Zinc 1 TAB PO SCH (10:08)
[2021-12-03] MEDS: Atenolol 50 MG TAB PO SCH (10:09)
[2021-12-03] MEDS: Enoxaparin Sodium 40 MG/0.4 ML SYRINGE SC SCH (10:09)
[2021-12-03] MEDS: ALPRAZolam 0.25 MG TAB PO SCH ×2 (10:09→20:22)
[2021-12-03] MEDS: Losartan Potassium 50 MG TAB PO SCH (10:09)
[2021-12-03] MEDS: DULoxetine 30 MG CAP PO SCH ×2 (10:09→20:21)
[2021-12-03] MEDS: Aspirin 81 mg Enteric Coated Tablet PO SCH (10:09)
[2021-12-03] MEDS: Primidone 50 MG TAB PO SCH ×2 (10:40→20:22)
[2021-12-03] MEDS: Acetaminophen 325 MG TAB PO PRN ×2 (10:41→20:20)
[2021-12-03] MEDS: Gabapentin 300 MG CAP PO PRN (10:41)
[2021-12-03] MEDS: Terazosin HCl 1 MG CAP PO SCH (20:21)
[2021-12-03] MEDS: Atorvastatin Calcium 20 MG TAB PO SCH (20:21)
[2021-12-04] MEDS: Acetaminophen 325 MG TAB PO PRN (03:15)
[2021-12-04] MEDS: Stress 600 With Zinc 1 TAB PO SCH (10:47)
[2021-12-04] MEDS: Aspirin 81 mg Enteric Coated Tablet PO SCH (10:47)
[2021-12-04] MEDS: Primidone 50 MG TAB PO SCH (10:47)
[2021-12-04] MEDS: Atenolol 50 MG TAB PO SCH (10:47)
[2021-12-04] MEDS: Bupropion 150 MG XL TAB PO SCH (10:48)
[2021-12-04] MEDS: Amlodipine 10 MG TAB PO SCH (10:48)
[2021-12-04] MEDS: Escitalopram Oxalate 20 mg Tablet PO SCH (10:48)
[2021-12-04] MEDS: DULoxetine 30 MG CAP PO SCH (10:48)
[2021-12-04] MEDS: ALPRAZolam 0.25 MG TAB PO SCH (10:49)
[2021-12-04] MEDS: Enoxaparin Sodium 40 MG/0.4 ML SYRINGE SC SCH (10:49)
[2021-12-04] MEDS: Losartan Potassium 50 MG TAB PO SCH (10:49)
[2021-12-04] MEDS: Famotidine 20 MG TAB PO SCH (10:50)
[2021-12-04 11:21] VITALS: BP 149/67; TEMP 97.1
== END 2021-12-04 12:00 | disposition home or self-care (01) ==
LOC: CSHERS 22:53 → CSHTELE 11-30 01:53
PROVIDERS: ADMIT Student in an Organized Health Care Education/Training Program; ATTEND Family Medicine
DX: I25.118 Atherosclerotic heart disease of native coronary artery with other forms of angina pectoris (principal); I12.9 Hypertensive chronic kidney disease with stage 1 through stage 4 chronic kidney disease, or unspecified chronic kidney disease; N18.9 Chronic kidney disease, unspecified; D63.1 Anemia in chronic kidney disease; E78.5 Hyperlipidemia, unspecified; F32.A Depression, unspecified; R53.81 Other malaise; N17.9 Acute kidney failure, unspecified; R53.1 Weakness; Z20.822 Contact with and (suspected) exposure to COVID-19; G89.29 Other chronic pain; M54.9 Dorsalgia, unspecified; F41.9 Anxiety disorder, unspecified; F17.210 Nicotine dependence, cigarettes, uncomplicated; Z79.899 Other long term (current) drug therapy; Z88.2 Allergy status to sulfonamides; Z88.8 Allergy status to other drugs, medicaments and biological substances; Z95.5 Presence of coronary angioplasty implant and graft
CPT/HCPCS: 71045; 80048 ×2; 80053 ×2; 83540; 83550; 83880; 84484 ×3; 85025; 93005; 93306; 94760; 96372 ×4; 97116; 99285; G0378 ×6; U0002; 36415; J1650; J2916; J7050